=== PATIENT | male | born 1935 | race Caucasian/White ===

== ENCOUNTER 2016-06-19 19:46 | Emergency (ER) | payer OTHER ==
[~2016-06-19 19:46] MED LIST: ASPIRIN CHEWABL81 MG PO; BACLOFEN 10MG T10 MG PO; CETIRIZINE HCL10 MG PO; COREG 6.25MG6.25 MG PO; FERROUS SULFAT325 MG PO; FLOMAX0.4 MG PO; GLUCOPHAGE500 MG PO; GLUCOTROL XL5 MG PO; LANTUS100 UNIT/1 SC; LASIX40 MG PO; LEVAQUIN750 MG PO; MAXZIDE 37.5 M1 EACH PO; MELATONIN5 M2 PO; MOBIC7.5 MG PO; MUCINEX600 MG PO; MYSOLINE50 MG PO; PRAVACHOL20 MG PO; PREDNISONE; PRILOSEC20 MG PO; VENTOLIN (2.5 MG/3 M NEB; ZESTRIL10 MG PO; ZOLOFT50 MG PO
== END 2016-06-19 20:53 | disposition home or self-care (01) ==
LOC: FER 19:46
DX: S61.412A Laceration without foreign body of left hand, initial encounter (principal); I10 Essential (primary) hypertension; E11.9 Type 2 diabetes mellitus without complications; J98.9 Respiratory disorder, unspecified; Z23 Encounter for immunization; Z79.84 Long term (current) use of oral hypoglycemic drugs; Z79.899 Other long term (current) drug therapy; Z95.0 Presence of cardiac pacemaker; W29.8XXA Contact with other powered hand tools and household machinery, initial encounter; Y92.009 Unspecified place in unspecified non-institutional (private) residence as the place of occurrence of the external cause
CPT/HCPCS: 90471